=== PATIENT | female | born 1975 | race Two or more races ===

== ENCOUNTER 2018-07-06 20:18 | Outpatient (CLI) | payer OTHER | END 2018-07-06 20:31 | disposition home or self-care (01) | LOC: RAD 20:18 | DX: S93.402A Sprain of unspecified ligament of left ankle, initial encounter (principal) ==

== ENCOUNTER 2020-08-17 08:49 | Outpatient (CLI) | payer OTHER | END 2020-08-17 09:16 | disposition home or self-care (01) | LOC: MAMO-SONO 08:49 | PROVIDERS: ATTEND Obstetrics & Gynecology | DX: R10.31 Right lower quadrant pain (principal) ==

== ENCOUNTER 2020-09-01 10:52 | Outpatient (CLI) | payer OTHER | END 2020-09-01 11:08 | disposition home or self-care (01) | LOC: MAMO-SONO 10:52 | PROVIDERS: ATTEND Obstetrics & Gynecology | DX: N64.4 Mastodynia (principal); Z12.31 Encounter for screening mammogram for malignant neoplasm of breast ==

== ENCOUNTER 2021-09-14 12:41 | Outpatient (CLI) | payer OTHER | END 2021-09-14 12:52 | disposition home or self-care (01) | LOC: MAMO-SONO 12:41 | PROVIDERS: ATTEND Obstetrics & Gynecology | DX: N64.4 Mastodynia (principal) ==

== ENCOUNTER 2022-09-14 13:32 | Outpatient (CLI) | payer OTHER | END 2022-09-14 13:40 | disposition home or self-care (01) | LOC: MAMO-SONO 13:32 | PROVIDERS: ATTEND Obstetrics & Gynecology | DX: Z12.31 Encounter for screening mammogram for malignant neoplasm of breast (principal); N60.22 Fibroadenosis of left breast; N60.21 Fibroadenosis of right breast ==

== ENCOUNTER → 2024-07-01 | Outpatient (CLI) | payer OTHER | END | disposition home or self-care (01) | LOC: MAMO-SONO 08:53 | PROVIDERS: ATTEND Obstetrics & Gynecology | DX: N60.22 Fibroadenosis of left breast (principal); N60.21 Fibroadenosis of right breast; Z12.31 Encounter for screening mammogram for malignant neoplasm of breast; H90.A12 Conductive hearing loss, unilateral, left ear with restricted hearing on the contralateral side ==